=== PATIENT | female | born 1975 | race Caucasian/White ===

== ENCOUNTER 2019-12-14 16:49 | Outpatient (CLI) | payer BC, SELFPAY ==
--- NOTE | ~2019-12-14 | XR_ITS ---
EXAMINATION: XR chest 2V DATE: 12/14/2019 17:16 INDICATION: Chest pain and dizziness TECHNIQUE: PA and lateral views of the chest were obtained. COMPARISON: Chest radiograph dated 11/15/2018 FINDINGS: The lungs are clear with no focal airspace opacities, pulmonary edema, pleural effusion or pneumothor ax. The cardiomediastinal silhouette is normal. Mild thoracic spondylosis. IMPRESSION: 1. No acute cardiopulmonary disease. Reviewed, dictated and finalized at location A.
== END 2019-12-14 16:50 | disposition home or self-care (01) ==
LOC: ANHIMG 16:52
PROVIDERS: PCP Family Medicine; Visit Provider Family Medicine
DX: R07.9 Chest pain, unspecified (principal)
CPT/HCPCS: 71046

== ENCOUNTER 2022-03-31 11:42 | Emergency (ER) | payer BC, SELFPAY ==
--- NOTE | ~2022-03-31 | CT_ITS ---
EXAMINATION: CT brain wo con DATE: 03/31/2022 12:20 INDICATION: Dizziness TECHNIQUE: Computed tomography (CT) of the head was performed without intravenous contrast. Sagittal and coronal reconstructions were performed. The mA was adjusted according to patient size. Iterative reconstruction technique was employed. The dose-length product was 605.33 mGy-cm. COMPARISON: None FINDINGS: No acute intracranial hemorrhage, acute infarction or abnormal extra axial fluid collection. Ventricl es are normal and symmetric. No mass/mass effect. The orbits, paranasal sinuses and mastoid air cells are normal. IMPRESSION: 1. Normal head CT. Reviewed, dictated and finalized at location A. IMPRESSION: 1. Normal head CT.
[2022-03-31 11:46] VITALS: BP 140/98; PULSE 73; RESP 16; TEMP 36.3; O2SAT 100
--- NOTE | 2022-03-31 11:48 | ECG_ITS ---
Measurements Intervals [place] Rate: 67 P: 59 ME: 168 QRS: 39 QRSD: 98 T: 67 QT: 391 QTc: 415 Interpretive Statements SINUS RHYTHM POOR R-WAVE PROGRESSION NONSPECIFIC ST-T WAVE ABNORMALITY NO SIGNIFICANT CHANGES Electronically Signed On 03-31-2022 17:52:29 CDT by Davon Aldana M.D.
[2022-03-31 11:51] VITALS: BP 140/98; PULSE 67; PULSE 68; RESP 26; O2SAT 100
--- NOTE | 2022-03-31 12:04 | ED.DIZZY ---
HPI - Dizziness General Chief Complaint: Dizziness Stated Complaint: dizzy Time Seen by Provider: 03/31/22 11:44 History of Present Illness HPI Narrative: 46-year-old female presents the emergency room for worsening dizziness. Patient dates that she has been experiencing dizziness for the past 3 days, and is worse with movements. Dizziness is also associated with light sensitivity and nausea. Denies any head injury or trauma. Denies any recent URI symptoms. Denies chest pain shortness of breath or difficulty breathing. Denies unilateral weakness. Related Data Allergies Allergy/AdvReac Type Severity Reaction Status Date / Time No Known Allergies Allergy Verified 11/20/18 07:10 Review of Systems Review of Systems: CONSTITUTIONAL: Denies fever, chills, or sweats. EYES: Denies visual changes, redness, or discharge. ENT: Denies rhinorrhea, congestion, sore throat, or otalgia. CARDIOVASCULAR: Denies chest pain, palpitations, or edema. RESPIRATORY: Denies cough or dyspnea. GASTROINTESTINAL: Reports nausea GENITOURINARY: Denies dysuria or hematuria. SKIN: Denies rash or itching. MUSCULOSKELETAL: Denies back pain, joint pain, or myalgia. NEUROLOGIC: Reports dizziness PSYCHIATRIC: Denies anxiety or depression. [facility] Past Medical History Medical History (Updated 03/31/22 @ 13:39 by Winston Barrera, EDGAR) Depression Exam Narrative: GENERAL: Well-appearing, well-nourished, no physical limitations, and in no acute distress. HEAD: Normocephalic, atraumatic. EYES: Conjunctivae normal, PERRLA and EOMI. no vertical nystagmus noted CHEST: Clear to auscultation. No respiratory distress. No wheezes rales or rhonchi. No tenderness. HEART: Regular rate and rhythm. No murmur heard. Normal peripheral pulses. ABDOMEN: Soft, nontender, nondistended, normal active bowel sounds. EXTREMITIES: Normal range of motion. No edema. No clubbing or cyanosis SKIN: Warm, dry, no rash. No noted wounds NEURO: No focal deficits. Alert and oriented x3. MAEW. CN's II-XI intact bilaterally. Positive Rosa Maria-Hallpike PSYCH: Cooperative. Normal mood and affect. Course Vital Signs Vital signs: Vital Signs Temperature 36.3 C L 03/31/22 11:46 Pulse Rate 73 03/31/22 11:46 Respiratory Rate 16 03/31/22 11:46 Blood Pressure 140/98 H 03/31/22 11:46 Pulse Oximetry 100 03/31/22 11:46 Oxygen Delivery Room Air 03/31/22 11:46 Temperature 36.3 C L 03/31/22 11:46 Pulse Rate 66 03/31/22 13:15 Respiratory Rate 16 03/31/22 13:15 Blood Pressure 140/98 H 03/31/22 11:51 Pulse Oximetry 100 03/31/22 13:15 Oxygen Delivery Room Air 03/31/22 11:46 MDM - Dizziness Lab Data Result diagrams: 03/31/22 11:53 03/31/22 11:53 Labs: Lab Results 03/31/22 03/31/22 03/31/22 Range/Units 11:53 11:53 11:53 WBC 5.0 (4.5-10.0) K/mm3 RBC 4.88 (4.2-5.4) M/mm3 Hgb 12.8 (12.0-15.0) g/dL Hct 39.8 (37.0-47.0) % MCV 81.6 (80-100) fl MCH 26.2 (26-34) pg MCHC 32.2 (32-36) g/dl RDW 13.6 (11.5-14.5) % Plt Count 298 (150-375) k/mm3 MPV 9.9 (7.4-10.4) fl Immature Gran % (Auto) 0.2 (0-0.5) % Neut % (Auto) 53.4 (45.5-73.1) % Lymph % (Auto) 38.2 (18.3-44.2) % Crisp % (Auto) 6.8 (2.6-8.5) % Eos % (Auto) 1.0 (0-4.4) % Baso % (Auto) 0.4 (0.2-1.2) % Lymph # (Auto) 1.92 (0.9-3.2) K/mm3 Crisp # (Auto) 0.3 (0.1-0.6) K/mm3 Eos # (Auto) 0.1 (0-0.3) K/mm3 Baso # (Auto) 0.0 (0.0-0.1) K/mm3 Abs Immat Gran (auto) 0.01 (0.00-0.031) K/mm3 Absolute Neuts (auto) 2.7 (1.3-6.7) K/mm3 Absolute Nucleated RBC 0.0 (0.0-0.012) K/mm3 Nucleated RBC % 0.0 (0.0-0.2) % Sodium 139 (137-145) mmol/L Potassium 4.0 (3.4-5.0) mmol/L Chloride 107 (98-107) mmol/L Carbon Dioxide 23 (22-30) mmol/L Anion Gap 9 (8-16) mmol/L BUN 5 L (7-17) mg/dL Creatinine 0.70 (0.7-1.0) mg/dL Estim Creat Clear Calc 85
[2022-03-31 12:19] LABS: Basophils Percent Auto 0.4 % (0.2-1.2); Eosinophils Absolute Auto 0.1 K/mm3 (0-0.3); Hematocrit 39.8 % (37.0-47.0); Hemoglobin 12.8 g/dL (12.0-15.0); Immature Granulocyte Absolute 0.01 K/mm3 (0.00-0.031); Immature Granulocyte Percent A 0.2 % (0-0.5); Lymphocytes Absolute Auto 1.92 K/mm3 (0.9-3.2); Lymphocytes Percent Auto 38.2 % (18.3-44.2); Mean Corpuscular HGB Conc 32.2 g/dl (32-36); Mean Corpuscular Hemoglobin 26.2 pg (26-34); Mean Corpuscular Volume 81.6 fl (80-100); Mean Platelet Volume 9.9 fl (7.4-10.4); Monocytes Absolute Auto 0.3 K/mm3 (0.1-0.6); Monocytes Percent Auto 6.8 % (2.6-8.5); Neutrophils Absolute Auto 2.7 K/mm3 (1.3-6.7); Neutrophils Percent Auto 53.4 % (45.5-73.1); Platelet Count Result 298 k/mm3 (150-375); Red Blood Count 4.88 M/mm3 (4.2-5.4); Red Cell Distribution Width 13.6 % (11.5-14.5)
[2022-03-31] MEDS: MECLIZINE HCL 25 MG TABLET PO (12:33)
[2022-03-31 12:34] LABS: Alanine Aminotransferase 14 U/L (6-35); Albumin Level 4.4 g/dL (3.5-5.1); Alkaline Phosphatase 58 U/L (38-126); Anion Gap 9 mmol/L (8-16); Aspartate Amino Transferase 19 U/L (14-36); Bilirubin,Total 0.3 mg/dL (0.2-1.3); Blood Urea Nitrogen 5 mg/dL (7-17); Calcium 8.5 mg/dL (8.4-10.2); Carbon Dioxide 23 mmol/L (22-30); Chloride 107 mmol/L (98-107); Estimated CRCL calculation 85 ml/min; Estimated Glomerular Filt Rate > 60; Glucose 84 mg/dL (65-110); Sodium 139 mmol/L (137-145)
[2022-03-31 12:42] LABS: Troponin I < 0.012 ng/mL (0.000-0.034)
[2022-03-31 12:45] VITALS: PULSE 61; RESP 16; O2SAT 100
[2022-03-31 13:00] VITALS: PULSE 69; RESP 20; O2SAT 100
[2022-03-31 13:15] VITALS: PULSE 66; RESP 16; O2SAT 100
--- NOTE | 2022-03-31 13:19 | PC.NURSE ---
Patient reports she feels much better but reports a headache.
[2022-03-31] MEDS: ACETAMINOPHEN 500 MG TABLET 1000 MG PO (13:24)
== END 2022-03-31 13:52 | disposition home or self-care (01) ==
PROVIDERS: Emergency Provider Nurse Practitioner Family; PCP Family Medicine
DX: H81.10 Benign paroxysmal vertigo, unspecified ear (principal)
CPT/HCPCS: 36415; 70450; 80053; 84484; 85025; 93005; 99284; A9270

== ENCOUNTER 2024-04-23 07:16 | Emergency (ER) | payer BC, SELFPAY ==
[2024-04-23 07:20] VITALS: BP 161/109; PULSE 76; RESP 16; TEMP 36.3; O2SAT 100
--- NOTE | 2024-04-23 08:45 | ED.ALLEREA ---
HPI - Allergic Reaction General Chief complaint: Allergic Reaction Stated complaint: my throat and eyes are itchy Time Seen by Provider: 04/23/24 08:30 Source: patient Mode of arrival: ambulatory Limitations: no limitations History of Present Illness HPI narrative: Patient presents with concern for an allergic reaction based on itchy throat and eyes. .Symptoms started at 0300 and she took a Benadryl capsule at 06:30. 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 Had a Rx for epinephrine auto injector but has not filled it. When she woke up her bilateral eyes had a crusty discharge which she wiped away and which has not recurred. She states she had had itchy eyes before while staying at her boyfriends and wondered if it might be due to the pillow in bed. She also felt like she had itachy left hand and arm and back but no right arm involvement. She initially felt like her breathing might be involved but states it is better and thinks it might have been due to anxiousness. Denies new soaps, detergents, clothing, environment. No others with similar symptoms. She was at a holiday gathering and there were appetizer snacks like crackers, cheese, Chex mix, and cinammon pumpkin cookies. She didn't ask about ingredients and thinks maybe this is how an unknown antigen might have alternatively been introduced. Related Data Allergies Allergy/AdvReac Type Severity Reaction Status Date / Time peanut Allergy Unknown Verified 04/24/24 23:34 green pea Allergy Severe Anaphylaxis Uncoded 04/24/24 23:35 PMFSH Past Medical History Medical History Depression Social History Social History Sexual Orientation (if Verbalized by the Patient): Straight or Heterosexual Exam Narrative: GENERAL: Well-appearing, well-nourished, and in no acute distress. HEAD: Normocephalic, atraumatic. EYES: Non injected, non icteric. No conjunctival discharge/drainage. No chemosis . PERRL. ENT: Nares clear, no rhinorrhea or epistaxis. Uvula midline. No oropharyngeal swelling anterior or posterior. NECK: Supple. CHEST: Speaking in full sentences. No respiratory distress. HEART: Regular rate and rhythm. . ABDOMEN: Soft, nondistended. EXTREMITIES: Normal range of motion. No lower extremity edema. SKIN: Warm, dry. No bryan urticarial or other lesions appreciable on exposed skin. NEURO: No focal deficits. Alert and oriented x3. PSYCH: Normal mood and affect. Course Vital Signs Vital signs: Vital Signs Temperature 97.4 F L 04/23/24 07:20 Pulse Rate 76 04/23/24 07:20 Respiratory Rate 16 04/23/24 07:20 Blood Pressure 161/109 H 04/23/24 07:20 Pulse Oximetry 100 04/23/24 07:20 Oxygen Delivery Room Air 04/23/24 07:20 Temperature 97.7 F 04/23/24 09:42 Pulse Rate 66 04/23/24 09:42 Respiratory Rate 17 04/23/24 09:42 Blood Pressure 132/92 H 04/23/24 09:42 Pulse Oximetry 100 04/23/24 09:42 Oxygen Delivery Room Air 04/23/24 07:20 MDM - Allergic Reaction MDM Narrative Medical decision making narrative: Patient presents with concern for an allergic reaction after having itchy throat and eyes beginngin at 0300. Took Benadryl 25mg capsule at approximately 0630 (prior to arrival) and states symptoms at this time do seem to be improving. NO recurrence or new symptoms. In the emergency department she is afebrile with vital signs notable for vital signs. Reassuring physical exam. Patient is reassessed at approximately 9:15 a.m. and notes that she has had no new or worsening symptoms or other symptoms have largely improved or resolved. She is starting to feel bit sleepy from the Benadryl she took earlier but is otherwise alert and oriented. Discharged in stable condition and provided Rx for additional diphenhydramine if desired. Also re-prescribed epi auto injector and instructed on usage. Differential Diagnosis Differential diagnosis: Likely anaphylaxis, allergic reaction, angioedema, contact dermatitis, adverse reaction to drug, urticaria and other (conjunctivitis) Discharge Plan Discharge Clinical Impression: Allergic reaction Patient Disposition: Home, Self-Care Condition: Stable Instructions: Antibiotic Form, Food Allergy (ED), General Allergic Reaction (ED) Additional Instructions: If your previous prescription for the epinephrine auto injector has other 1 has been provided. Indication to administer are the involvement of 2 organ systems (e.g. skin findings/hives PLUS respiratory issues/difficulty breathing or GI Distress PLUS hives/rash or altered mental status/confusion PLUS throat complaints, etc.). It can be administered through clothing into the outer thigh and, if administered, the pen is to be maintained in place for 10 seconds and you are to call 911. This episode appears to be a simple allergic reaction rather than anaphylaxis. you can continue to use diphenhydramine/Benadryl as needed though, as you know, cause effect of drowsiness. follow-up with your primary care physician or, if any new or worsening symptoms, return to the emergency department. Prescriptions: New epinephrine 0.3 mg/0.3 mL auto-injector 0.3 mg IM Q5-15M PRN (Reason: anaphylaxis) Qty: 2 0RF Rx Instructions: do not exceed 3 doses per episode diphenhydramine HCl 25 mg capsule 25 mg PO TID PRN (Reason: allergy symptoms) Qty: 20 0RF No Action meclizine 25 mg tablet 25 mg PO TID Qty: 20 0RF Follow-up/Referrals: Red,KEVIN Royal [Primary Care Provider] - Stand Alone Forms: Work/School Release IP Time of Disposition: 09:20
[2024-04-23 09:42] VITALS: BP 132/92; PULSE 66; RESP 17; TEMP 36.5; O2SAT 100
== END 2024-04-23 10:41 | disposition home or self-care (01) ==
PROVIDERS: Emergency Provider Student in an Organized Health Care Education/Training Program; PCP Physician Assistant
DX: T78.40XA Allergy, unspecified, initial encounter (principal); X58.XXXA Exposure to other specified factors, initial encounter
CPT/HCPCS: 99283

== ENCOUNTER 2024-05-19 09:52 | Outpatient (CLI) | payer BC, SELFPAY ==
--- NOTE | ~2024-05-19 | MM_ITS ---
EXAMINATION: MM screening [place] BI w [place] HISTORY: Screening mammogram TECHNIQUE: Craniocaudal and mediolateral oblique 3-D tomosynthesis images were obtained and synthetic 2-D images were generated. CAD analysis was submitted and interpreted. COMPARISON: 06/15/2018 BREAST PARENCHYMAL COMPOSITION:Dense: The breasts are heterogeneously dense, which may obscure small masses. FINDINGS: No suspicious mass, calcification, or architectural distortion are identified in either syeda ast to suggest malignancy. There has been no suspicious interval change. IMPRESSION: No mammographic evidence of malignancy. Recommend routine screening mammography in one year. BI-RADS Category 1: Negative Reviewed, dictated and finalized at location . LER CHIEF
== END 2024-05-19 09:53 | disposition home or self-care (01) ==
LOC: ANHIMG 09:54
PROVIDERS: PCP Physician Assistant; Visit Provider Physician Assistant
DX: Z12.31 Encounter for screening mammogram for malignant neoplasm of breast (principal)
CPT/HCPCS: 77063; 77067

== ENCOUNTER 2025-05-16 14:43 | Emergency (ER) | payer BC, SELFPAY ==
--- NOTE | ~2025-05-16 | XR_ITS ---
EXAMINATION: XR chest 2V DATE: 05/16/2025 15:19 INDICATION: Cough, fever, congestion TECHNIQUE: Frontal and lateral views of the chest were obtained. COMPARISON: None previous available FINDINGS: Heart size is normal. Evangelina and mediastinum are normal. Lungs are clear of acute process. IMPRESSION: 1. No acute cardiopulmonary findings. Reviewed, dictated and finalized at location T. PTIONIST SCHEDULER
[2025-05-16 14:54] VITALS: BP 141/86; PULSE 89; RESP 16; TEMP 36.8; O2SAT 100
--- NOTE | 2025-05-16 15:00 | ED.URI ---
HPI - URI/Sore Throat General Chief Complaint: Upper Respiratory Infection Stated Complaint: Covid Positive/Chest X-ray Time Seen by Provider: 05/16/25 15:00 Source: patient and RN notes reviewed Mode of arrival: ambulatory Limitations: no limitations History of Present Illness HPI Narrative: 49-year-old female presents with concern of for still feeling poorly after a positive COVID test last week. Reports her symptoms started 1 week ago, she had a positive COVID test on Friday. Reports she has had a productive cough, it hurts to deep breathe at times. She reports some back aches. She is concern for pneumonia. She last measured a fever on Friday, she has not been taking her temperature otherwise. She is taking Mucinex MD elicited complaint: cough Related Data Home Medications ?Medication ?Instructions ?Recorded ?Confirmed ?Last Taken ?Type bupropion HCl 150 mg 24 hr tablet, 150 mg PO DAILY 03/25/25 05/16/25 Unknown History extended release bupropion HCl 300 mg 24 hr tablet, 300 mg PO DAILY 03/25/25 05/16/25 Unknown History extended release fluoxetine 20 mg capsule 20 mg PO DAILY 03/25/25 05/16/25 Unknown History hydroxyzine pamoate 25 mg capsule 25 mg PO HS 03/25/25 05/16/25 Unknown History propranolol 60 mg capsule,24 60 mg PO DAILY 03/25/25 05/16/25 Unknown History hr,extended release tirzepatide (weight loss) 10 10 mg subcut MONTHLY 03/25/25 05/16/25 Unknown History mg/0.5 mL subcutaneous pen injector (Zepbound) valacyclovir 500 mg tablet 500 mg PO DAILY 03/25/25 05/16/25 Unknown History nirmatrelvir 300 mg (150 mg 1 ea PO BID 05/16/25 05/16/25 Unknown History x2)-ritonavir 100 mg tablet,dose pack (Paxlovid) Allergies Allergy/AdvReac Type Severity Reaction Status Date / Time No Known Allergies Allergy Verified 05/16/25 14:48 Review of Systems Review of Systems: CONSTITUTIONAL: Reports malaise EYES: Denies visual changes, redness, or discharge. ENT: Reports rhinorrhea, congestion CARDIOVASCULAR: Denies chest pain, palpitations, or edema. RESPIRATORY: Reports cough. Denies dyspnea. GASTROINTESTINAL: Denies abdominal pain, nausea, vomiting, diarrhea SKIN: Denies rash or itching. MUSCULOSKELETAL: Reports myalgia, back aches. NEUROLOGIC: Reports headache. All systems reviewed & are unremarkable except as noted in HPI and below PMFSH Past Medical History Medical History Depression Social History Social History Smoking status: Never smoker Alcohol intake: current Drinks per week: 2 Substance use type: does not use Living arrangements: alone Sexual Orientation (if Verbalized by the Patient): Straight or Heterosexual Comments At time of signature, agree with nursing past medical, surgical, social and family history. There is no relevant family history pertinent to the presenting complaint Exam Narrative: GENERAL: Nontoxic-appearing, well-nourished, and in no acute distress. HEAD: Normocephalic EYES: PERRLA, conjunctivae clear ENT: Nares clear. Mucous membranes moist. TM pearly phillips with dull light reflex bilaterally; no tragal tenderness. Oropharynx not erythematous without lesions. Tonsils not enlarged and without exudate, no drooling, no hoarseness, no trismus, uvula midline. NECK: Supple. No lymphadenopathy CHEST: Clear to auscultation, breath sounds equal. No wheezing, rhonchi, rales, or stridor. No respiratory distress, speaks in full sentences. HEART: Regular rate and rhythm. No murmur heard. SKIN: Warm, dry, no rash. NEURO: Alert and oriented x3. PSYCH: Normal mood and affect Course Course Emergency Course: Patient is aware of diagnosis, understands and agrees to treatment plan. Anticipatory guidance given. Patient agrees to follow-up as directed and is aware of reasons to seek care at the emergency department. Portions of this record may have been created with voice recognition software Level of Care: Express Care Visit Vital Signs Vital signs: Vital Signs Temperature 98.2 F 05/16/25 14:54 Pulse Rate 89 05/16/25 14:54 Respiratory Rate 16 05/16/25 14:54 Blood Pressure 141/86 H 05/16/25 14:54 Pulse Oximetry 100 05/16/25 14:54 Oxygen Delivery Room Air 05/16/25 14:54 Temperature 98.2 F 05/16/25 14:54 Pulse Rate 89 05/16/25 14:54 Respiratory Rate 16 05/16/25 14:54 Blood Pressure 141/86 H 05/16/25 14:54 Pulse Oximetry 100 05/16/25 14:54 Oxygen Delivery Room Air 05/16/25 14:54 Reviewed. MDM - URI/Sore Throat MDM Narrative Medical decision making narrative: Differential diagnosis considered: Woodard virus, strep pharyngitis, allergic rhinitis, upper respiratory tract infection, sinusitis, rhinosinusitis, nasopharyngitis. viral pharyngitis, otitis media, otitis externa, pneumonia, bronchitis, viral cough syndrome, viral syndrome, and influenza. Exam findings show no acute concerns or changes; patient is non-toxic appearing and is in no distress. Patient is appropriate for outpatient treatment and follow-up. Lab Data Attestation: I reviewed the patient's lab results. Imaging Data My impression: Images reviewed, interpreted by radiologist, agree, see report. Radiologist's impression: EXAMINATION: XR chest 2V DATE: 05/16/2025 15:19 INDICATION: Cough, fever, congestion TECHNIQUE: Frontal and lateral views of the chest were obtained. COMPARISON: None previous available FINDINGS: Heart size is normal. Evangelina and mediastinum are normal. Lungs are clear of acute process. IMPRESSION: 1. No acute cardiopulmonary findings. Critical Care Time Critical Care Time Critical Care Time: No Discharge Plan Discharge Clinical Impression: Bronchitis Patient Disposition: Home Condition: Stable Instructions: Acute Bronchitis (ED) Additional Instructions: Your chest x-ray does not show pneumonia Cough syrup may cause drowsiness; avoid driving or take it at night time. Also, recommend symptomatic treatment includes: rest, fluids, and increase humidity of the air at home. Recommend Acetaminophen as directed on the bottle to reduce fever, pain, headache. Avoid smoking/second-hand smoke. Please schedule a follow-up visit with your personal physician for further evaluation and treatment within 3-5days. Including recheck and discussion of your blood pressure. If your symptoms persist, change or worsen significantly before you can contact your personal physician then please, without delay, go to the emergency department for further evaluation. Patient Language: French Prescriptions: New methylprednisolone [Medrol (Victoriano)] 4 mg tablets,dose pack See Rx Instructions .ROUTE .COMPLEX Qty: 21 0RF Rx Instructions: orally per package directions promethazine-DM 6.25-15 mg/5 mL syrup 5 ml PO Q4-6H PRN (Reason: cough) Qty: 120 0RF No Action Paxlovid 300 mg (150 mg x 2)-100 mg tablets,dose pack 1 ea PO BID bupropion HCl 150 mg tablet extended release 24 hr 150 mg PO DAILY bupropion HCl 300 mg tablet extended release 24 hr 300 mg PO DAILY fluoxetine 20 mg capsule 20 mg PO DAILY hydroxyzine pamoate 25 mg capsule 25 mg PO HS propranolol 60 mg capsule,extended release 24 hr 60 mg PO DAILY valacyclovir 500 mg tablet 500 mg PO DAILY Zepbound 10 mg/0.5 mL pen injector 10 mg SUBCUT MONTHLY Follow-up/Referrals: Red,KEVIN Royal [Primary Care Provider, Unknown] Stand Alone Forms: Work/School Release IP Time of Disposition: 15:41
== END 2025-05-16 15:49 | disposition home or self-care (01) ==
PROVIDERS: Emergency Provider Nurse Practitioner; PCP Physician Assistant
DX: J40 Bronchitis, not specified as acute or chronic (principal); F32.A Depression, unspecified
CPT/HCPCS: 71046; 99213; G0463